=== PATIENT | female | born 1975 | race Hispanic/Latino ===

== ENCOUNTER 2016-10-18 18:05 | Outpatient (CLI) | payer OTHER ==
[~2016-10-18 18:05] MED LIST: TYLENOL EXTRA500 MG PO
[2016-10-18 18:32] VITALS: BP 127/71
[2016-10-18 19:46] VITALS: BP 120/61
[2016-10-18 19:49] LABS: ADD MIUA? YES; BILIRUBIN NEGATIVE; BLOOD LARGE; COLOR YELLOW ((YELLOW)); GLUCOSE (STRIP) NEGATIVE; KETONES NEGATIVE; LEUKOCYTES NEGATIVE; NITRITE NEGATIVE; PROTEIN (STRIP) NEGATIVE; SPECIFIC GRAVITY 1.014 (1.000-1.030); UROBILINOGEN 0.2 MG/DL (0.2-1.0)
[2016-10-18 19:52] LABS: BACTERIA 1+ /HPF; EPITHELIAL CELLS RARE /HPF; MUCUS TRACE /LPF; RED BLOOD CELLS TNTC /HPF (0-5); UCUL ADDED? NO; WHITE BLOOD CELLS 0-5 /HPF (0-5)
[2016-10-18 20:08] LABS: AMPHETAMINES QUANT VALUE 0 NG/ML; BARBITUATES QUANT VALUE 0 NG/ML; BENZODIAZEPINES QUANT VALUE 0 NG/ML; BENZODIAZEPINES, URINE SCREEN Negative (200 ng/mL); MARIJUANA QUANT VALUE 0 NG/ML; OPIATES QUANTITATIVE VALUE 0 NG/ML; PHENCYCLIDINE QUANT VALUE 0 NG/ML
[2016-10-18 22:03] LABS: CANDIDA DNA PROBE NEGATIVE; GARDNERELLA DNA PROBE NEGATIVE; INTERNAL CONTROL VALID? YES
[2016-10-18 22:29] VITALS: BP 118/57
[2016-10-20 15:31] LABS: CHLAMYDIA TRACHOMATIS NEGATIVE; NEISSERIA GONORRHOEAE NEGATIVE
== END 2016-10-18 23:20 | disposition home or self-care (01) ==
LOC: LDRP-OP 18:05 → 2WEST 18:06 → LDRP-OP 01-25 16:25
PROVIDERS: Advanced Practice Midwife; Obstetrics & Gynecology Obstetrics
DX: R10.9 Unspecified abdominal pain (principal); M54.9 Dorsalgia, unspecified; O99.89 Other specified diseases and conditions complicating pregnancy, childbirth and the puerperium; Z3A.29 29 weeks gestation of pregnancy
CPT/HCPCS: 59025; 80306 90; 81003; 82731; 87086; 87480; 87491; 87510; 87591; 87660; G0378; J3105; J7120

== ENCOUNTER 2016-12-27 06:14 | Inpatient (IN) | payer OTHER ==
[~2016-12-27] VITALS: Ht 162.6 cm; Wt 111.6 kg
[2016-12-27] VITALS (10 sets, daily range): BP systolic 99–140; BP diastolic 46–66
[~2016-12-27 06:14] MED LIST changes: +PRENATAL TABLE1 EACH PO
[2016-12-27 07:08] LABS: EOSINOPHIL (%) 0.7 % (0-5); EOSINOPHIL COUNT 0.1 K/uL (0-0.3); HEMATOCRIT 34.5 % (36.0-46.0); IMMATURE GRANULOCYTE COUNT 0.1 K/uL; INSTRUMENT ABS NEUTROPHIL CT 6.8 K/uL; LYMPHOCYTE COUNT 1.8 K/uL (1.0-2.8); MCH 28.5 PG (29.0-34.0); MCHC 32.8 G/DL (30.0-36.0); MCV 87.1 FL (83-99); MEAN PLAT.VOLUME 10.8 uM^3 (9.5-12.4); MONOCYTE (%) 5.8 % (3-12); MONOCYTE COUNT 0.5 K/uL (0-0.8); NEUTROPHIL COUNT 6.8 K/uL (1.8-6.4); PLATELET COUNT 178 K/uL (156-360); RBC DIS.WIDTH-SD 44.1 % (39-53); RED BLOOD COUNT 3.96 M/uL (3.80-5.20); WHITE BLOOD COUNT 9.4 K/uL (4.1-10.2)
[2016-12-28 03:00] VITALS: BP 100/51
[2016-12-28 07:19] VITALS: BP 96/62
[2016-12-28 09:27] LABS: EOSINOPHIL (%) 0.7 % (0-5); EOSINOPHIL COUNT 0.1 K/uL (0-0.3); HEMATOCRIT 29.9 % (36.0-46.0); IMMATURE GRANULOCYTE (%) 0.8 % (0.0-0.7); IMMATURE GRANULOCYTE COUNT 0.1 K/uL; INSTRUMENT ABS NEUTROPHIL CT 7.8 K/uL; LYMPHOCYTE COUNT 1.4 K/uL (1.0-2.8); MCH 28.6 PG (29.0-34.0); MCHC 32.8 G/DL (30.0-36.0); MCV 87.2 FL (83-99); MEAN PLAT.VOLUME 11.1 uM^3 (9.5-12.4); MONOCYTE (%) 5.1 % (3-12); MONOCYTE COUNT 0.5 K/uL (0-0.8); NEUTROPHIL (%) 78.7 % (45-76); NEUTROPHIL COUNT 7.8 K/uL (1.8-6.4); PLATELET COUNT 154 K/uL (156-360); RBC DIS.WIDTH-CV 14.1 % (11.8-14.6); RBC DIS.WIDTH-SD 44.2 % (39-53); RED BLOOD COUNT 3.43 M/uL (3.80-5.20); WHITE BLOOD COUNT 9.9 K/uL (4.1-10.2)
[2016-12-28 10:26] VITALS: BP 126/72
[2016-12-28 15:04] VITALS: BP 107/58
[2016-12-28 19:00] VITALS: BP 106/53
[2016-12-28 23:17] VITALS: BP 109/60
[2016-12-29 02:34] VITALS: BP 105/58
[2016-12-29] MEDS ORDERED: IBUPROFEN800 MG PO (09:43)
[2016-12-29] MEDS ORDERED: ENDOCET 5-3251 EACH PO (09:43)
== END 2016-12-29 11:40 | disposition home or self-care (01) | DRG 766 ==
LOC: 2WEST 06:14 → 2SOUTH 10:30 → 2WEST 12-29 11:40
PROVIDERS: Obstetrics & Gynecology
DX: O99.214 Obesity complicating childbirth (principal); N85.8 Other specified noninflammatory disorders of uterus; R51 Headache; Z3A.38 38 weeks gestation of pregnancy; Z37.0 Single live birth; Z68.30 Body mass index [BMI] 30.0-30.9, adult; Z30.2 Encounter for sterilization
CPT/HCPCS: 85025; 86900; 86901; 88302; J0690; J2274; J2405; J3010; J7120